=== PATIENT | male | born 1985 | race Hispanic/Latino ===

== ENCOUNTER 2019-02-08 09:06 | Emergency (ER) | payer SELFPAY ==
[2019-02-08] MEDS ORDERED: Ketorolac Tromethamine 30 MG/ML VIAL ONE (09:25)
[2019-02-08] MEDS ORDERED: Ondansetron PF 4 MG/2 ML Vial ONE (09:25)
[2019-02-08] MEDS ORDERED: Morphine 4 MG/ML VIAL ONE ×2 (09:25→10:46)
[2019-02-08 09:44] LABS: #Eosinphils 0.2 thou/uL (0.0-0.7); #Lymphocytes 2.9 thou/uL (1.20-3.40); #Monocytes 0.6 thou/uL (0.11-0.59); #Neutrophils 3.9 thou/uL (1.40-6.50); %Basophils 0.3 % (0.0-1.0); %Lymphocytes 38.5 % (21.0-51.0); %Monocytes 7.7 % (0.0-10.0); %Neutrophils 51.5 % (42.0-75.0); Hemoglobin 16.8 g/dL (14.0-18.0); Mean Corpuscular HGB CONC 35.3 g/dL (32.0-36.0); Mean Corpuscular Hemoglobin 30.7 pg (27.0-31.0); Mean Corpuscular Volume 86.9 fL (78.0-98.0); Mean Platelet Volume 9.3 fL (7.4-10.4); Platelet Count 144 thou/uL (130-400); RBC Distribution Width 11.5 % (11.5-14.5); Red Blood Cell (RBC) Count 5.47 mill/uL (4.70-6.10); White Blood Cell (WBC) Count 7.5 thou/uL (4.8-10.8)
--- NOTE | 2019-02-08 09:59 | CT ---
CT Stone Protocol 02/08/2019 9:23 AM HISTORY: Left flank pain with radiation of pain to testicles when urinating. COMPARISON: None. Technique: Multiple contiguous axial CT images are obtained through the abdomen and pelvis without IV contrast. Coronal reformats are provided. FINDINGS: This examination is limited for the evaluation of solid organs and vascular structures due to the lac k of intravenous contrast. Lower Chest: Minimal dependent bibasilar atelectasis. Abdomen: Liver: Diminished attenuation suggesting diffuse fatty infiltration with mild fatty sparing adjacent to the gallbladder. Gallbladder: Within normal limits for CT imaging. Pancreas: within normal limits. Spleen: within normal limits. Adrenals: within normal limits. Kidneys: Nonobstructing bilateral renal calculi are seen with 2-3 nonobstructing bilateral renal calc juan daniel visualized. Largest calculus on the left in the midportion left kidney measures 5 mm. There is mild left hydronephrosis. Ureters: There is mild left hydroureter with an approximately 2 mm calculus seen at the left UVJ. No right ureteral calculus is visualized.. Pelvis: Urinary bladder: Decompressed and not well evaluated. Reproductive Organs: No pelvic masses. Lymph Nodes: No enlarged lymph nodes. Bowel: Normal caliber. Appendix: The appendix is normal in caliber. Peritoneum/retroperitoneum: Trace amount of free fluid is seen in the pelvis. Vessels: Abdominal aorta is normal in caliber.. Abdominal Wall: within normal limits. Bones: Few sclerotic densities are seen in the pelvis likely related to bone islands. IMPRESSION: 1. Partially obstructing left UVJ calculus measuring 2 mm with mild left hydronephrosis and hydrouret er. 2. Nonobstructing bilateral renal calculi. 3. Fatty infiltration of the liver.
[2019-02-08 11:13] LABS: Bilirubin Negative (Negative); Blood, Urine Moderate (Negative); Glucose, Urine (Dipstick) Negative (Negative); Leukocyte Negative (Negative); Nitrite Negative (Negative); Protein, Urine (Dipstick) Negative (Neg-Trace); Urobilinogen 0.2 mg/dL (Less than 2)
[2019-02-08 11:31] LABS: Clarity Clear (Clear)
[2019-02-08 11:32] LABS: Albumin 3.9 g/dL (3.5-5.0)
[2019-02-08 11:33] LABS: Chloride 108 mmol/L (98-107); Potassium 3.9 mmol/L (3.5-5.1); Sodium 136 mmol/L (136-145)
[2019-02-08 11:34] LABS: Calcium 7.9 mg/dL (7.8-10.44)
[2019-02-08 11:35] LABS: Globulin 2.4 g/dL (2.4-3.5); Glucose 107 mg/dL (70-105); Protein, Total 6.3 g/dL (6.0-8.3)
[2019-02-08 11:36] LABS: Anion Gap 9 mmol/L (10-20); Bilirubin, Total 0.3 mg/dL (0.2-1.2); Carbon Dioxide 23 mmol/L (22-29)
[2019-02-08 11:36] LABS: Bacteria/HPF 1+ HPF (None Seen); RBC/HPF 21-50 HPF (0-3); Squamous Epithelial 0-3 HPF (0-3)
[2019-02-08 11:37] LABS: Alkaline Phosphatase 61 U/L (40-110)
[2019-02-08 11:38] LABS: Calc. Creatinine Clearance 0 mL/min (70-130); Estimated GFR-MDRD 83
[2019-02-08 11:39] LABS: BUN (Urea Nitrogen) 12 mg/dL (8.9-20.6)
[2019-02-08 11:40] LABS: AST (SGOT) 21 U/L (5-34)
[2019-02-08 11:41] LABS: ALT (SGPT) 38 U/L (8-55); Lipase 186 U/L (8-78)
== END 2019-02-08 11:57 | disposition home or self-care (01) ==
LOC: ERS 09:06
DX: N13.2 Hydronephrosis with renal and ureteral calculous obstruction (principal)
CPT/HCPCS: 36415; 74176; 80053; 81003; 81015; 83690; 85025; 96361; 96374; 96375; 96376; J1885; J2270; J2405

== ENCOUNTER 2024-04-02 21:50 | Inpatient (IN) | payer OTHER, SELFPAY ==
[~2024-04-02 21:50] MED LIST: Iopamidol-370 76% 500 ML MDV (1 ML CHARGE) ONE
[2024-04-02] MEDS ORDERED: Ondansetron PF 4 MG/2 ML Vial ONE (22:30)
[2024-04-02 22:38] LABS: #Basophils 0.05 10x3/uL (0.0-0.2); %Basophils 0.6 % (0.0-1.0); %Eosinophils 2.2 % (0.0-10.0); %Lymphocytes 41.9 % (21.0-51.0); %Monocytes 8.9 % (0.0-10.0); %Neutrophils 45.9 % (42.0-75.0); Hematocrit 46.8 % (42.0-52.0); Hemoglobin 16.4 g/dL (14.0-18.0); Mean Corpuscular Hemoglobin 30.5 pg (27.0-31.0); Mean Platelet Volume 11.2 fL (7.4-10.4); Platelet Count 137 10x3/uL (130-400); RBC Distribution Width 11.8 % (11.5-14.5); Red Blood Cell (RBC) Count 5.38 mill/uL (4.70-6.10)
[2024-04-02 22:49] LABS: ALT (SGPT) 62 U/L (8-55); AST (SGOT) 30 U/L (5-34); Albumin 4.2 g/dL (3.5-5.0); Alkaline Phosphatase 67 U/L (40-110); Anion Gap 14 mmol/L (10-20); BUN (Urea Nitrogen) 13 mg/dL (8.9-20.6); Bilirubin, Total 0.4 mg/dL (0.2-1.2); Calc. Creatinine Clearance 0 mL/min (70-130); Calcium 8.8 mg/dL (7.8-10.44); Carbon Dioxide 21 mmol/L (22-29); Chloride 107 mmol/L (98-107); Estimated GFR 105; Globulin 3.1 g/dL (2.4-3.5); Glucose 120 mg/dL (70-105); Lipase 40 U/L (8-78); Potassium 3.9 mmol/L (3.5-5.1); Protein, Total 7.3 g/dL (6.0-8.3); Sodium 138 mmol/L (136-145)
[2024-04-02 22:52] LABS: Troponin I Less than 0.010 ng/mL (< 0.028)
[2024-04-02] MEDS ORDERED: Ketorolac Tromethamine 30 MG (1 mL) VIAL ONE (23:39)
[2024-04-02] MEDS ORDERED: Metoclopramide HCl 10 MG (2 mL) VIAL ONE (23:39)
[2024-04-03] MEDS ORDERED: Meclizine HCl 25 MG TAB ONE (01:44)
[2024-04-03] MEDS ORDERED: Aspirin Chewable 81 MG TAB ONE (01:44)
[2024-04-03] MEDS ORDERED: Ondansetron PF 4 MG/2 ML Vial IVP PRN (01:45)
[2024-04-03] MEDS ORDERED: Ondansetron ODT 4 MG TAB PO PRN (01:45)
[2024-04-03] MEDS ORDERED: hydrALAZINE 20 MG/ML VIAL SLOW IVP PRN (01:47)
[2024-04-03 02:11] LABS: Bacteria/HPF None Seen HPF (None Seen); Bilirubin Negative (Negative); Blood, Urine Negative (Negative); CAUTI Indications for Culture Alt mental st,lethar; Clarity Clear (Clear); Glucose, Urine (Dipstick) Normal (Negative); Ketone, Urine Negative (Negative); Leukocyte Negative Leu/uL (Negative); Nitrite Negative (Negative); Protein, Urine (Dipstick) Negative (Neg-Trace); RBC/HPF None Seen HPF (0-3); Specific Gravity, Urine 1.045 (1.002-1.036); Squamous Epithelial None Seen HPF (0-3); Urobilinogen Normal mg/dL (Less than 2); WBC/HPF 0-3 HPF (0-3); pH, Urine 5.5 (5.0-9.0)
[2024-04-03 02:14] LABS: Urine Culture Reflex No No
[2024-04-03 02:46] VITALS: BMI 27.1
[2024-04-03] MEDS: Doxycycline 100 MG in Sodium Chloride 0.9% 100 ML IVPB SCH (03:20)
[2024-04-03 03:30] LABS: #Basophils 0.03 10x3/uL (0.0-0.2); #Eosinophils Less than 0.03 10x3/uL (0.0-0.7); %Basophils 0.3 % (0.0-1.0); %Eosinophils 0.2 % (0.0-10.0); %Lymphocytes 15.3 % (21.0-51.0); %Monocytes 3.5 % (0.0-10.0); %Neutrophils 80.4 % (42.0-75.0); Hematocrit 44.2 % (42.0-52.0); Hemoglobin 14.9 g/dL (14.0-18.0); Mean Corpuscular HGB CONC 33.7 g/dL (32.0-36.0); Mean Corpuscular Hemoglobin 30.2 pg (27.0-31.0); Mean Corpuscular Volume 89.5 fL (78.0-98.0); Mean Platelet Volume 11.5 fL (7.4-10.4); Platelet Count 128 10x3/uL (130-400); RBC Distribution Width 11.8 % (11.5-14.5); Red Blood Cell (RBC) Count 4.94 mill/uL (4.70-6.10)
[2024-04-03 04:18] LABS: ALT (SGPT) 55 U/L (8-55); AST (SGOT) 27 U/L (5-34); Albumin 3.8 g/dL (3.5-5.0); Alkaline Phosphatase 61 U/L (40-110); Anion Gap 12 mmol/L (10-20); BUN (Urea Nitrogen) 12 mg/dL (8.9-20.6); Bilirubin, Total 0.4 mg/dL (0.2-1.2); Calc. Creatinine Clearance 159 mL/min (70-130); Calcium 8.4 mg/dL (7.8-10.44); Carbon Dioxide 19 mmol/L (22-29); Chloride 109 mmol/L (98-107); Cholesterol 159 mg/dl (< 200 Desired); Estimated GFR 115; Globulin 2.6 g/dL (2.4-3.5); Glucose 119 mg/dL (70-105); HDL Cholesterol 32 mg/dL (>60 Neg Risk); LDL Cholesterol, Calculated 95 mg/dL; Potassium 4.2 mmol/L (3.5-5.1); Protein, Total 6.4 g/dL (6.0-8.3); Sodium 136 mmol/L (136-145); Triglycerides 160 mg/dL (Less than 150)
[2024-04-03] MEDS: Meclizine HCl 25 MG TAB PO PRN (09:20)
[2024-04-03] MEDS: Acetaminophen 325 MG TAB PO PRN (09:20)
[2024-04-03] MEDS: Doxycycline 100 MG CAP PO SCH (09:21)
[2024-04-03] MEDS: Famotidine/PF 20 mg/2ml Vial SLOW IVP SCH (09:22)
[2024-04-03] MEDS: Famotidine 20 MG TAB PO SCH (09:22)
[2024-04-03] MEDS: Aspirin 81 mg Enteric Coated Tablet PO SCH (09:22)
[2024-04-03] MEDS: Enoxaparin 40 MG (0.4 mL) SYRINGE SC SCH (09:27)
[2024-04-03] MEDS ORDERED: Sodium Bicarbonate 2.5 MEQ/5 ML SDV ONE (09:45)
[2024-04-03] MEDS: Fioricet 325/50/40 mg Tablet PO PRN (12:50)
[2024-04-03 13:57] LABS: CSF Source CSF; Clarity Clear (Clear); Tube # 4
[2024-04-03] MEDS ORDERED: Acyclovir Sodium 500 mg (10 mL) Vial IVPB SCH (14:00)
[2024-04-03] MEDS: ACYCLOVIR SODIUM IVPB SCH (14:16)
[2024-04-03] MEDS: SODIUM CHLORIDE 0.9% IVPB SCH (14:16)
[2024-04-03] MEDS: cefTRIAXone\\ROCEPHIN 2 GM in Sodium Chloride 0.9% 100 ML IVPB SCH (14:16)
[2024-04-03] MEDS: Rosuvastatin 20 MG TAB PO SCH (20:12)
[2024-04-04] MEDS: Doxycycline 100 MG CAP PO SCH (08:57)
[2024-04-04] MEDS: traMADol HCl 50 MG TAB PO PRN (12:34)
[2024-04-04] MEDS: Meclizine HCl 25 MG TAB PO SCH (14:05)
[2024-04-05 04:01] LABS: #Basophils 0.04 10x3/uL (0.0-0.2); %Basophils 0.6 % (0.0-1.0); %Eosinophils 2.7 % (0.0-10.0); %Lymphocytes 40.4 % (21.0-51.0); %Monocytes 7.4 % (0.0-10.0); %Neutrophils 48.6 % (42.0-75.0); Hemoglobin 15.5 g/dL (14.0-18.0); Mean Corpuscular HGB CONC 34.4 g/dL (32.0-36.0); Mean Corpuscular Hemoglobin 30.4 pg (27.0-31.0); Mean Corpuscular Volume 88.2 fL (78.0-98.0); Mean Platelet Volume 11.7 fL (7.4-10.4); Platelet Count 136 10x3/uL (130-400); RBC Distribution Width 11.7 % (11.5-14.5)
[2024-04-05 04:08] LABS: Anion Gap 9 mmol/L (10-20); BUN (Urea Nitrogen) 12 mg/dL (8.9-20.6); Calc. Creatinine Clearance 122 mL/min (70-130); Calcium 8.7 mg/dL (7.8-10.44); Carbon Dioxide 27 mmol/L (22-29); Chloride 105 mmol/L (98-107); Estimated GFR 94; Glucose 109 mg/dL (70-105); Potassium 3.4 mmol/L (3.5-5.1); Sodium 138 mmol/L (136-145)
[2024-04-05] MEDS: Potassium Chloride 20 MEQ TAB PO SCH (09:09)
[2024-04-05 16:15] LABS: Troponin I Less than 0.010 ng/mL (< 0.028)
[2024-04-05 21:36] LABS: Troponin I Less than 0.010 ng/mL (< 0.028)
[2024-04-06 05:04] LABS: Troponin I Less than 0.010 ng/mL (< 0.028)
[2024-04-06] MEDS: Dexamethasone 4 mg/ml Vial SLOW IVP SCH (10:59)
[2024-04-06] MEDS: Ibuprofen 600 MG TAB PO SCH (10:59)
[2024-04-06 15:16] LABS: VDRL, CSF Non Reactive (Non Rea:<1:1)
[2024-04-06 17:56] VITALS: TEMP 98.3
[2024-04-06 20:13] VITALS: BP 135/87
[2024-04-10 19:37] LABS: Aspergillus AB-CSF <1:1 (.); Blastomyces AB-CSF <1:1 (.); Histoplasma Mycelial AB-CSF <1:1 (.); Histoplasma Yeast AB-CSF <1:1 (.)
== END 2024-04-07 13:08 | disposition home or self-care (01) | DRG 103 ==
LOC: ERS 21:50 → 2SE 04-03 02:17 → OBSVTOIN 04-05 11:04
PROVIDERS: ADMIT Internal Medicine; ATTEND Internal Medicine
PROC: 009U3ZX Drainage of Spinal Canal, Percutaneous Approach, Diagnostic (ICD-10-PCS; principal; 2024-04-03)
DX: R51.9 Headache, unspecified (principal); R42 Dizziness and giddiness; R07.9 Chest pain, unspecified
CPT/HCPCS: 36415; 62270; 70450; 70496; 70498; 70551; 71045; 80048; 80053; 80061; 81001; 82945; 83690; 84145; 84157; 84484; 85025; 86592; 86612; 86635; 86698; 87529; 87899; 89051; 93005; 93010; 96361; 96365; 96375; J0133; J0696; J1100; J1650; J1885; J2405; J2765; Q9967